=== PATIENT | female | born 1965 | race Caucasian/White ===

== ENCOUNTER 2016-06-27 05:11 | Emergency (ER) | payer OTHER ==
[~2016-06-27] VITALS: Ht 175.3 cm; Wt 84.0 kg
[~2016-06-27 05:11] MED LIST: ACIDOPHILUS1 EAC3 PO; BENZONATATE100 MG PO; CRESTOR20 MG PO; FIORICET,ESG1 TABLET PO; FLEXERIL10 MG PO; INDERAL LA60 MG PO; PREVACID30 MG PO; PROMETHAZINE HC25 M1 PO
[2016-06-27 06:44] VITALS: BP 149/73
== END 2016-06-27 06:45 | disposition home or self-care (01) ==
LOC: EME 05:11
DX: R51 Headache (principal); K21.9 Gastro-esophageal reflux disease without esophagitis; F17.200 Nicotine dependence, unspecified, uncomplicated
CPT/HCPCS: 99281; 99284; J1100; J1200; J1885; J2765; J7030

== ENCOUNTER 2017-03-09 10:49 | Emergency (ER) | payer OTHER ==
[~2017-03-09] VITALS: Ht 172.7 cm; Wt 84.1 kg
[2017-03-09 11:25] LABS: APPEARANCE CLEAR ((CLEAR)); BILIRUBIN NEGATIVE; BLOOD NEGATIVE; COLOR YELLOW ((YELLOW)); GLUCOSE (STRIP) NEGATIVE; KETONES NEGATIVE; LEUKOCYTES NEGATIVE; NITRITE NEGATIVE; PROTEIN (STRIP) NEGATIVE; SPECIFIC GRAVITY 1.012 (1.000-1.030); UCUL ADDED? NO; UROBILINOGEN 0.2 MG/DL (0.2-1.0)
[2017-03-09 13:01] LABS: HEMATOCRIT 39.3 % (36.0-46.0); HEMOGLOBIN 12.9 G/DL (11.9-15.5); MCH 31.5 PG (29.0-34.0); MCHC 32.8 G/DL (30.0-36.0); MCV 96.1 FL (83-99); PLATELET COUNT 290 K/uL (156-360); RBC DIS.WIDTH-CV 12.8 % (11.8-14.6); RBC DIS.WIDTH-SD 44.9 % (39-53); RED BLOOD COUNT 4.09 M/uL (3.80-5.20); WHITE BLOOD COUNT 5.8 K/uL (4.1-10.2)
[2017-03-09 13:16] LABS: ALBUMIN 4.2 g/dL (3.2-4.8); CHLORIDE 108 mEq/L (99-109); POTASSIUM 3.9 mEq/L (3.7-5.4); SODIUM 141 mEq/L (136-147)
[2017-03-09 13:19] LABS: GLUCOSE 87 mg/dL (70-99); TOTAL PROTEIN 6.5 g/dL (6.4-8.3)
[2017-03-09 13:21] LABS: TOTAL BILIRUBIN 0.3 mg/dL (0.0-1.0)
[2017-03-09 13:22] LABS: ALKALINE PHOSPHATASE 97 IU/L (3-129); CREATININE 0.7 mg/dL (0.6-1.3); GFR ESTIMATE (CALCULATED) > 59 mL/min/
[2017-03-09 13:23] LABS: UREA NITROGEN (BUN) 8 mg/dL (9-23)
[2017-03-09 13:24] LABS: AST (GOT) 22 IU/L (2-34)
[2017-03-09 13:25] LABS: ALT (GPT) 28 IU/L (3-49)
[2017-03-09] MEDS ORDERED: BENTYL20 MG PO (14:58)
[2017-03-09 15:09] VITALS: BP 137/93
== END 2017-03-09 15:10 | disposition home or self-care (01) ==
LOC: EME 10:49
PROVIDERS: Nurse Practitioner Family
DX: K58.0 Irritable bowel syndrome with diarrhea (principal); K21.9 Gastro-esophageal reflux disease without esophagitis; F17.200 Nicotine dependence, unspecified, uncomplicated; Z88.5 Allergy status to narcotic agent
CPT/HCPCS: 74177; 80053; 81003; 85027; 99281; 99284